=== PATIENT | male | born 1960 | race Caucasian/White ===

== ENCOUNTER 2020-02-18 07:04 | Day surgery (SDC) | payer MEDICAID ==
[2020-02-18] MEDS ORDERED: Sodium Chloride 0.9% 1,000 ML IV SCH (07:30)
[2020-02-18] MEDS ORDERED: Propofol 200 MG/20 ML SDV ONE (07:33)
[2020-02-18] MEDS ORDERED: fentaNYL 100 MCG/2 ML SDV ONE (07:33)
[2020-02-18] MEDS ORDERED: Midazolam 1 MG/ML 2 ML SDV ONE (07:33)
--- NOTE | 2020-02-18 15:24 | OR ---
DATE OF PROCEDURE: 02/18/2020 SURGEON: Jose D Emery MD PROCEDURE: Colonoscopy. FINDINGS: Prominent internal hemorrhoid, most consistent with bleeding location. COMPLICATIONS: None. WEAVER APPRENTICE: None. ANESTHESIA: MAC. PREOPERATIVE DIAGNOSIS: Gastrointestinal bleeding. POSTOPERATIVE DIAGNOSIS: Gastrointestinal bleeding. RISKS: Risks, benefits, alternatives, and limitations including, but not limited to infection, bleeding, injury to abdominal structures, and perforation were explained to the patient. We also discussed false positives and false negatives. PROCEDURE IN DETAIL: The patient was placed in left lateral decubitus position. Digital rectal exam was performed without abnormality. The scope was introduced and advanced atraumatically through the ileocecal valve. The scope was brought back through the ascending, transverse, descending colon, and retroflexed. On retroflexion, prominent hemorrhoid was identified. This was a band x1. No evidence of old or new blood or other abnormalities. Greater than 10 minutes was spent removing the scope. The patient tolerated the procedure well. Jose D Emery MD /[id number]
== END 2020-02-18 10:05 | disposition home or self-care (01) ==
LOC: JP.SDS 07:04
PROVIDERS: ATTEND Surgery
DX: K92.2 Gastrointestinal hemorrhage, unspecified (principal); K64.8 Other hemorrhoids; F41.1 Generalized anxiety disorder
CPT/HCPCS: J2250; J2704; J3010; J7030

== ENCOUNTER 2020-07-04 07:43 | Day surgery (SDC) | payer MEDICAID ==
[~2020-07-04 07:43] MED LIST: Bupivacaine 0.5% 50 ML MDV ONE; Midazolam 1 MG/ML 2 ML SDV ONE; Propofol 200 MG/20 ML SDV ONE; fentaNYL 100 MCG/2 ML SDV ONE
[2020-07-04] MEDS ORDERED: ceFAZolin 2 GM in Sodium Chloride 0.9% 50 ML IV ONE (08:30)
[2020-07-04] MEDS ORDERED: ceFAZolin 2 GM in Premix Bag 1 BAG IV ONE (08:30)
[2020-07-04] MEDS ORDERED: Lactated Ringers 1,000 ML IV SCH (08:30)
[2020-07-04] MEDS ORDERED: Nozin Nasal Sanitizer NASBOTH ONE (08:30)
[2020-07-04] MEDS ORDERED: Propofol 200 MG/20 ML SDV ONE (10:31)
[2020-07-04] MEDS ORDERED: Lactated Ringers 1,000 ML ONE (11:06)
--- NOTE | 2020-07-20 21:45 | OR ---
DATE OF PROCEDURE: 07/04/2020 SURGEON: Stone Bright MD PREOPERATIVE DIAGNOSES: Impingement, left shoulder, with rotator cuff tear. POSTOPERATIVE DIAGNOSES: 1. Impingement, left shoulder, small full-thickness tear, rotator cuff with tendinopathy. 2. Very mild biceps tendinopathy. PROCEDURES: Arthroscopy, right shoulder, with arthroscopic rotator cuff repair, subacromial decompression with acromioplasty. FITTING ROOM OPERATOR: TRA Knapp INDICATIONS: Maximino is a pleasant 60-year-old gentleman with a history of persistent left shoulder pain which has been going on for quite some time. He has tried conservative treatment with limited success. Examination and imaging are consistent with impingement and significant rotator cuff tendinopathy and apparent small full-thickness tear. Now presents for arthroscopic evaluation and repair as necessary. Risks, benefits and potential complications of the procedure were discussed. DESCRIPTION OF PROCEDURE: After adequate anesthesia was obtained, the patient was placed in lateral decubitus position and secured with a peterson bag positioner. Left shoulder and arm were then prepped and draped in a sterile fashion and 10 pounds of traction was placed through the shoulder traction unit. A standard posterior portal was established and scope was introduced. Glenohumeral joint revealed intact articular cartilage on both the glenoid and humeral heads. No significant labral degeneration was present. Subscapularis was intact. Biceps tendon showed some mild tendinopathy without tear. Undersurface of the rotator cuff showed tendinopathy with several small perforations. The scope was removed and placed in the subacromial space. This showed impingement on the coracoacromial ligament and significant tendinopathy of the rotator cuff. Further evaluation of the cuff revealed several small full-thickness tears. Working through the lateral portal, soft tissue was cleared from the undersurface of the acromion with a combination of shaver and the Serfas ablation wand. Anterolateral edge of the acromion was delineated and a trey was then utilized to perform an acromioplasty, removing approximately 4 mm from the undersurface of the anterolateral corner and bevelling this medially and posteriorly. The area of tendinopathy was debrided with a shaver and the superior surface of the tuberosity was lightly decorticated with a trey. Area of the full-thickness tear was less than 1 cm and a single Mitek Healix anchor was placed. Sutures were brought up through the tendon in a mattress fashion and tied down, approximating the solid portion of the tendon to the tuberosity. Excellent apposition was obtained. Arm was taken through internal and external rotation, fixation was solid. Scope was switched from the posterior to the lateral portal. The level of the acromioplasty was evaluated, was adequate, and the cuff was inspected with good repair. The scope was withdrawn. Port sites were closed in a standard fashion. Sterile dressing was applied. The patient was taken from the operating room in stable condition. Stone Bright MD /[id number]
== END 2020-07-04 13:14 | disposition home or self-care (01) ==
LOC: JP.SDS 07:43
PROVIDERS: ATTEND Specialist
DX: M75.122 Complete rotator cuff tear or rupture of left shoulder, not specified as traumatic (principal); M25.812 Other specified joint disorders, left shoulder; M75.22 Bicipital tendinitis, left shoulder
CPT/HCPCS: 29826; 29827; 36415; 80048; 85027; A9270; C1713; J0690; J2250; J2704; J3010; J7120; J3490